=== PATIENT | male | born 1955 | race Caucasian/White ===

== ENCOUNTER 2023-09-30 06:56 | Day surgery (SDC) | payer BC, MEDICARE ==
[2023-09-30] MEDS: Sodium Chloride 0.9% 10 ML Syringe FLUSH PRN (07:50)
== END 2023-09-30 08:30 | disposition home or self-care (01) ==
LOC: JP.SDS 06:56
PROVIDERS: ATTEND Ophthalmology
DX: H25.812 Combined forms of age-related cataract, left eye (principal)
CPT/HCPCS: 66984; J3490; V2632

== ENCOUNTER 2023-10-14 07:31 | Day surgery (SDC) | payer MEDICARE ==
[2023-10-14] MEDS: Sodium Chloride 0.9% 10 ML Syringe FLUSH PRN (08:07)
== END 2023-10-14 09:57 | disposition home or self-care (01) ==
LOC: JP.SDS 07:31
PROVIDERS: ATTEND Ophthalmology
DX: H25.11 Age-related nuclear cataract, right eye (principal); I10 Essential (primary) hypertension; Z79.899 Other long term (current) drug therapy
CPT/HCPCS: 66984; J3490; V2632